=== PATIENT | male | born 1965 | race Caucasian/White ===

== ENCOUNTER 2017-10-08 13:19 | Emergency (ER) | payer OTHER ==
--- NOTE | 2017-10-08 13:31 | EDPHY ---
H & P Stated Complaint: bilat leg cramping x few weeks Time Seen by Provider: 10/08/17 13:30 - Personal History Current Tetanus/Diphtheria Vaccine: Unsure Current Tetanus Diphtheria and Acellular Pertussis (TDAP): Unsure - Medical/Surgical History Hx Asthma: No Hx Chronic Respiratory Disease: No Hx Diabetes: No Hx Cardiac Disease: No Hx Renal Disease: No Hx Cirrhosis: No Hx Alcoholism: No Hx HIV/AIDS: Yes Hx Splenectomy or Spleen Trauma: No Other PMH: NIDDM. HIV. hyperlipidemia - Social History Smoking Status: Never smoked Constitutional: Initial Vital Signs Temperature (C) 37.0 C 10/08/17 13:24 Heart Rate 85 10/08/17 13:24 Respiratory Rate 18 10/08/17 13:24 Blood Pressure 132/90 H 10/08/17 13:24 O2 Sat (%) 96 10/08/17 13:24 O2 Delivery Mode Room Air Allergies/Adverse Reactions: No Known Allergies Allergy (Unverified 10/08/17 13:21) Home Medications: Medication Instructions Recorded FENOFIBRATE 10/08/17 Glipizide 10/08/17 Jardiance 10/08/17 LORazepam [Ativan 1 mg (RX)] 1 mg PO QS PRN #14 tab 10/08/17 Lisinopril 10/08/17 Metformin HCl 10/08/17 Pioglitazone HCl 10/08/17 Pravastatin Sodium 10/08/17 Triumeq Tablet 10/08/17 Medical Decision Making - Diagnostics Imaging Results: Imaging Impressions Extremity Venous Study 10/08/17 13:39 Impression: There is no sonographic evidence of deep or superficial venous thrombosis in either lower extremity. Findings were discussed with Rogelio Byers MD at 14:18, on 10/08/2017. Imaging: Discussed imaging studies w/ call center coordinator Radiologist, I viewed and interpreted images myself ED Course/Re-evaluation: CHIEF COMPLAINT: Bilateral leg cramps HISTORY OF PRESENT ILLNESS: The patient is a 52 y/o male with a history of HIV and NIDDM who is on a statin , complaining intermittent episodes of bilateral lower extremity cramping for several weeks. Around 10 days ago he had a bad episode of lower extremity cramping. Since this bad episode he has had a throbbing sensation in his legs as well as hip and low back pain. This pain has not improved with increased water consumption or taking Glycinate and ibuprofen. Last night he began to have bruising of his right calf as well as a grisly sound in the back of his right knee. Today he began to feel a heartbeat in his right leg that began in his calf and has since radiated up his leg. He has recently been working out more, but believes these symptoms are not due to that. Denies seeing a etl architect or neurologist in the past for these symptoms. Denies chest pain , shortness of breath, abdominal pain, numbness, paresthesias, fever. REVIEW OF SYSTEMS: A 10 point review of systems was performed and is negative with the exception of the elements mentioned in the history of present illness. PHYSICAL EXAM: HR, BP, O2 Sat, RR. Temp noted General Appearance: Alert, well hydrated, appropriate, and non-toxic appearing. Head: Atraumatic without scalp tenderness or obvious injury Eyes: Pupils equal, round, reactive to light and accommodation, EOMI, no trauma , no injection. Ears: Clear bilaterally, no perforation, normal landmarks Nose: Atraumatic, no rhinorrhea, clear. Throat: There is no erythema or exudates, no lesions, normal tonsils, mucus membranes moist. Neck: Supple, nontender, no lymphadenopathy. Respiratory: No retractions, no distress, no wheezes, and no accessory muscle use. Lungs are clear to auscultation bilaterally. Cardiovascular: Regular rate and rhythm, no murmurs, rubs, or gallops. Bilateral carotid, radial, dorsalis pedis, and posterior tibial pulses intact. Good capillary refill all extremities. Gastrointestinal: Abdomen is soft, nontender, non-distended, no masses, no rebound, no guarding, no peritoneal signs. Musculoskeletal: Bruising on right medial calf. Normal active ROM of all extremities, atraumatic. Neurological: Alert, appropriate, and interactive. Non-focal neuro. Skin: No rashes, good turgor, no nodules on palpation. Past medical history: NIDDM, HIV, hyperlipidemia Past surgical history: Denies Family history: Denies Social history: Lives in [place], single, employed DIAGNOSTICS/PROCEDURES/CRITICAL CARE TIME: Lower Extremity US: Negative DIFFERENTIAL DIAGNOSIS: The differential diagnosis for the patient's leg cramping included but was not limited to Parkinson's Disease, myopathy, neuropathy, electrolyte abnormality, neurogenic cause, medication side effect, lumbar stenosis, trauma, and DVT. MEDICAL DECISION MAKING: The patient is a 52 y/o male with a history of HIV and NIDDM who is on a statin , is presenting with intermittent episodes of bilateral lower extremity cramping. On exam he has bruising on the right medial calf, but normal dorsalis pedis and posterior tibial pulses. Labs and bilateral lower extremity US ordered. 1420: I spoke with Dr. Bush, radiologist, regarding patient's negative lower extremity US. This patient has normal laboratory findings including normal electrolytes, kidney function, LFT's, and total CPK. His blood counts are also unremarkable besides borderline anemia. 1421: Reassessed patient and discussed normal imaging and laboratory findings. I have discussed taking a B complex vitamin, vitamin E, Benadryl, and a low dose iron for his symptoms. I have prescribed the patient Ativan for at night and discussed outpatient follow up with a neurologist and with [facility]. Return precautions provided; patient is comfortable with this plan. - Data Points Laboratory Results: Laboratory Results 10/08/17 13:50 10/08/17 13:50 10/08/17 10/08/17 13:50 13:50 WBC 5.01 10^3/uL 10^3/uL (3.80-9.50) RBC 3.81 10^6/uL L 10^6/uL (4.40-6.38) Hgb 12.7 g/dL L g/dL (13.7-17.5) Hct 36.9 % L % (40.0-51.0) MCV 96.9 fL fL (81.5-99.8) MCH 33.3 pg pg (27.9-34.1) MCHC 34.4 g/dL g/dL (32.4-36.7) RDW 12.0 % % (11.5-15.2) Plt Count 352 10^3/uL 10^3/uL (150-400) MPV 8.7 fL fL (8.7-11.7) Neut % (Auto) 53.3 % % (39.3-74.2) Lymph % (Auto) 29.3 % % (15.0-45.0) [place] % (Auto) 13.2 % H % (4.5-13.0) Eos % (Auto) 3.0 % % (0.6-7.6) Baso % (Auto) 1.0 % % (0.3-1.7) Nucleat RBC Rel Count 0.0 % % (0.0-0.2) Absolute Neuts (auto) 2.67 10^3/uL 10^3/uL (1.70-6.50) Absolute Lymphs (auto) 1.47 10^3/uL 10^3/uL (1.00-3.00) Absolute Monos (auto) 0.66 10^3/uL 10^3/uL (0.30-0.80) Absolute Eos (auto) 0.15 10^3/uL 10^3/uL (0.03-0.40) Absolute Basos (auto) 0.05 10^3/uL 10^3/uL (0.02-0.10) Absolute Nucleated RBC 0.00 10^3/uL 10^3/uL (0-0.01) Immature Gran % 0.2 % % (0.0-1.1) Immature Gran # 0.01 10^3/uL 10^3/uL (0.00-0.10) Sodium 142 mEq/L mEq/L (135-145) Potassium 4.6 mEq/L mEq/L (3.3-5.0) Chloride 108 mEq/L mEq/L (97-110) Carbon Dioxide 19 mEq/l L mEq/l (22-31) Anion Gap 15 mEq/L mEq/L (8-16) BUN 19 mg/dL mg/dL (7-23) Creatinine 1.3 mg/dL mg/dL (0.7-1.3) Estimated GFR 58 Glucose 83 mg/dL mg/dL (70-100) Calcium 9.6 mg/dL mg/dL (8.5-10.4) Total Bilirubin 0.4 mg/dL mg/dL (0.1-1.4) Conjugated Bilirubin 0.4 mg/dL mg/dL (0.0-0.5) Unconjugated Bilirubin 0.0 mg/dL mg/dL (0.0-1.1) AST 33 IU/L IU/L (17-59) ALT 51 IU/L IU/L (21-72) Alkaline Phosphatase 39 IU/L IU/L (38-126) Creatine Kinase 129 IU/L IU/L (0-224) Total Protein 7.0 g/dL g/dL (6.3-8.2) Albumin 4.3 g/dL g/dL (3.5-5.0) Departure - Departure Disposition: Home, Routine, Self-Care Clinical Impression: Bilateral leg cramps Condition: Good Instructions: Lorazepam (By mouth), Leg Cramps (ED), Muscle Cramp (ED) Additional Instructions: 1. Take Ativan at night as prescribed. 2. Start taking B complex vitamins and Vitamin E. 3. Take a low dose iron supplement. 4. Take 25-50mg of Benadryl before bed. 5. Follow up with [facility] and a neurologist in the next week. 6. Return to the Emergency Department for fever, chest pain, shortness of breath , increasing pain or other worsening of condition. Referrals: [facility]celyn Cox [Outside] - As per Instructions Grace Barbosa MD [Primary Care Provider] - As per Instructions Alfonso Henning DO [Doctor of Osteopathy] - As per Instructions Prescriptions: LORazepam [Ativan 1 mg (RX)] 1 mg PO QS PRN #14 tab PRN Reason: Spasms Report Scribed for: Rogelio Byers Report Scribed by: Sadia Tovar Date of Report: 10/08/17 Time of Report: 13:31
[2017-10-08 13:57] LABS: PLATELET COUNT 352 10^3/uL (150-400)
[2017-10-08 14:09] LABS: CREATINE KINASE 129 IU/L (0-224)
[2017-10-08 14:37] VITALS: BP 148/90
== END 2017-10-08 14:37 | disposition home or self-care (01) ==
DX: R25.2 Cramp and spasm (principal); Z21 Asymptomatic human immunodeficiency virus [HIV] infection status; E11.9 Type 2 diabetes mellitus without complications; Z79.84 Long term (current) use of oral hypoglycemic drugs

== ENCOUNTER → 2017-10-09 | Outpatient (CLI) | payer OTHER ==
[~2017-10-09] MED LIST: GADOBUTROL 10 ML VIAL IVP ONE
== END ==
LOC: FIMAGING 17:17
PROVIDERS: ATTEND Internal Medicine
DX: M99.73 Connective tissue and disc stenosis of intervertebral foramina of lumbar region (principal); M48.061 Spinal stenosis, lumbar region without neurogenic claudication; M48.07 Spinal stenosis, lumbosacral region; M12.88 Other specific arthropathies, not elsewhere classified, other specified site; M51.26 Other intervertebral disc displacement, lumbar region
CPT/HCPCS: A9585

== ENCOUNTER 2017-10-10 03:55 | Emergency (ER) | payer OTHER ==
[2017-10-10 04:09] VITALS: BP 131/92
--- NOTE | 2017-10-10 04:38 | EDPHY ---
H & P Stated Complaint: severe cramping of lower extremities worsening Time Seen by Provider: 10/10/17 04:14 HPI/ROS: Chief Complaint: Leg cramping HPI: 52-year-old HIV-positive male who has a long history of intermittent leg cramping for years has been having worsening cramping for the last several weeks. He is actually seen in the emergency department 2 days ago for severe leg cramping. At that time he had an ultrasound which was unremarkable and blood work which was also unremarkable. He was referred to [facility] for further evaluation and he had a lumbar spine MRI yesterday afternoon. This morning he went to bed and woke up at 1:30 a.m. With severe bilateral leg cramping. He took 1 mg of Ativan as prescribed on his prior ER visit. Patient continued to have severe cramping so he took a 2nd mg of Ativan and came here for further evaluation. Patient is now presenting feeling much better. He does state that over the last 2 weeks he has been having decreased mobility issues. No difficulty urinating or having a bowel movement. He has taken high doses of electrolytes in the past was advised against this was potassium is too high. His viral load is undetectable. His brother has had similar symptoms in the contents around the family but the symptoms have been significantly worse recently. He is presenting this morning wondering if he should take further electrolytes or any other treatments. He does have an appointment with the [facility] doctors tomorrow. ROS: 10 point Review of Systems is negative except as noted in the HPI. Social History: No smoking, no alcohol, no recreational drug use Family History: non-contributory Physical Exam: Gen: Awake, Alert, No Distress HEENT: Nose: no rhinorrhea Eyes: PERRLA, EOMI Mouth: Moist mucosa Neck: Supple, no JVD Chest: nontender, lungs clear to auscultation Heart: S1, S2 normal, no murmur Abd: Soft, non-tender, no guarding Back: no CVA tenderness, no midline tenderness Ext: no edema, non-tender Skin: no rash Neuro: CN II-XII intact, Sensation grossly intact, Strength 5/5 in bilateral upper and lower extremities, he does have diminished bilateral deep tendon reflexes in the patellar tendons - Personal History Current Tetanus/Diphtheria Vaccine: No Current Tetanus Diphtheria and Acellular Pertussis (TDAP): No - Medical/Surgical History Hx Asthma: No Hx Chronic Respiratory Disease: No Hx Diabetes: No Hx Cardiac Disease: No Hx Renal Disease: No Hx Cirrhosis: No Hx Alcoholism: No Hx HIV/AIDS: Yes Hx Splenectomy or Spleen Trauma: No Other PMH: NIDDM. HIV. hyperlipidemia. severe cramps to legs - Social History Smoking Status: Never smoked Constitutional: Initial Vital Signs Temperature (C) 36.7 C 10/10/17 03:59 Heart Rate 95 10/10/17 03:59 Respiratory Rate 18 10/10/17 03:59 Blood Pressure 131/92 H 10/10/17 03:59 O2 Sat (%) 96 10/10/17 03:59 O2 Delivery Mode Room Air Allergies/Adverse Reactions: No Known Allergies Allergy (Unverified 10/08/17 13:21) Home Medications: Medication Instructions Recorded FENOFIBRATE 10/08/17 Glipizide 10/08/17 Jardiance 10/08/17 LORazepam [Ativan 1 mg (RX)] 1 mg PO QS PRN #14 tab 10/08/17 Lisinopril 10/08/17 Metformin HCl 10/08/17 Pioglitazone HCl 10/08/17 Pravastatin Sodium 10/08/17 Triumeq Tablet 10/08/17 Medical Decision Making - Diagnostics Imaging Results: Lumbar spine MRI done yesterday shows L5-S1 moderate to severe left neural foraminal stenosis, moderate right neural foraminal stenosis, and mild central canal stenosis secondary to severe degenerative disc disease with circumferential disc osteophyte some bilateral facet L3-L4 right far lateral disc herniation with mild degenerative disc disease resulting in mild central canal stenosis and mild right neural foraminal stenosis. No diskitis osteomyelitis or enhancing lesions. ED Course/Re-evaluation: I have reviewed the patient's MRI from yesterday afternoon. He does have significant degenerative disc disease and foraminal narrowing which is likely exacerbating his symptoms. He is neurologically intact. His pain is controlled after the Ativan he took this morning. I recommend he continue with his medications. He can also add tonic water to his diet 4 quinine. Ultimately however I believe he needs to follow up with the spine doctors. He has an appointment with them tomorrow. His symptoms are controlled now. No evidence of an acute neurosurgical emergency at this time. Departure - Departure Disposition: Home, Routine, Self-Care Clinical Impression: Lumbar radiculopathy Condition: Good Instructions: Lumbar Radiculopathy (ED) Additional Instructions: Follow up with her spine doctor tomorrow as scheduled. Return to the emergency department for increasing back pain, numbness, weakness , fevers, chills, difficulty urinating or having a bowel movement, or any other concerns. Referrals: [facility] [Provider Group] - As per Instructions
== END 2017-10-10 04:56 | disposition home or self-care (01) ==
DX: M54.16 Radiculopathy, lumbar region (principal); E11.9 Type 2 diabetes mellitus without complications; B20 Human immunodeficiency virus [HIV] disease; Z79.84 Long term (current) use of oral hypoglycemic drugs

== ENCOUNTER 2017-10-21 16:01 | Observation (INO) | payer OTHER ==
--- NOTE | 2017-10-21 16:20 | CPEKG ---
Heart Rate: 98 RR Interval: 612 P-R Interval: 128 QRSD Interval: 72 QT Interval: 324 QTC Interval: 414 P [place]: 63 QRS [place]: 50 T Wave [place]: 38 EKG Severity - NORMAL ECG - EKG Impression: SINUS RHYTHM Electronically Signed By: Alfonso Childers 21-Oct-2017 16:42:32
[2017-10-21] MEDS ORDERED: ASPIRIN 81 MG CHEWABLE TAB PO ONE (16:35)
[2017-10-21] MEDS ORDERED: NS 1,000 ML IV ONE (16:35)
--- NOTE | 2017-10-21 16:39 | EDPHY ---
H & P Stated Complaint: felt presyncopal today, muscle cramps, Sob, tremors, taking alot of magnesi Time Seen by Provider: 10/21/17 16:19 HPI/ROS: CHIEF COMPLAINT: Pre syncope, diaphoretic and lightheaded HISTORY OF PRESENT ILLNESS: Patient is a 52-year-old man with a history of HIV with the currently undetectable viral load who has been to the ER 3 times in the last week. The 1st 2 times were for muscle cramping in his lower legs. He was hydrated and had normal electrolytes. His symptoms improved significantly with baclofen. On the 2nd visit he had an MRI of his lumbar spine that showed moderate to severe foraminal stenosis. He has follow-up on Monday for EMG. He states however that today he felt suddenly sweaty and lightheaded and was stumbling around bumping into crabtree. He denies chest pain or shortness of breath at the time. He is now here and appears anxious and rocking. He describes it as a tremor. Her resolves when he is distracted. REVIEW OF SYSTEMS: Constitutional: denies: chills, fever, recent illness, recent injury EENTM: denies: blurred vision, double vision, nose congestion Respiratory: denies: cough, shortness of breath Cardiac: See HPI Gastrointestinal/Abdominal: denies: abdominal pain, diarrhea, nausea, vomiting, blood streaked stools Genitourinary: denies: dysuria, frequency, hematuria, pain Musculoskeletal: See HPI Skin: denies: lesions, rash, jaundice, bruising Neurological: denies: headache, numbness, paresthesia, tingling, dizziness, weakness Hematologic/Lymphatic: denies: blood clots, easy bleeding, easy bruising Immunologic/allergic: denies: HIV/AIDS, transplant EXAM: GENERAL: Well-appearing, well-nourished and in no acute distress. HEAD: Atraumatic, normocephalic. EYES: Pupils equal round and reactive to light, extraocular movements intact, sclera anicteric, conjunctiva are normal. ENT: TMs normal, nares patent, oropharynx clear without exudates. Moist mucous membranes. NECK: Normal range of motion, supple without lymphadenopathy or JVD. LUNGS: Breath sounds clear to auscultation bilaterally and equal. No wheezes rales or rhonchi. HEART: Regular rate and rhythm without murmurs, rubs or gallops. ABDOMEN: Soft, nontender, normoactive bowel sounds. No guarding, no rebound. No masses appreciated. BACK: No CVA tenderness, no spinal tenderness, step-offs or deformities EXTREMITIES: Normal range of motion, no pitting or edema. No clubbing or cyanosis. NEUROLOGICAL: NIH stroke score 0, Cranial nerves II through XII grossly intact. Normal speech, normal gait. 5/5 strength, normal movement in all extremities, normal sensation PSYCH: Patient has a rocking motion with his torso. It resolves when distracted. Normal movement, currently go lightheadedness or dizziness. SKIN: Warm, dry, normal turgor, no visible rashes or lesions. Source: Patient, Family Exam Limitations: No limitations - Personal History Current Tetanus/Diphtheria Vaccine: No Current Tetanus Diphtheria and Acellular Pertussis (TDAP): No - Medical/Surgical History Hx Asthma: No Hx Chronic Respiratory Disease: No Hx Diabetes: Yes Hx Cardiac Disease: No Hx Renal Disease: No Hx Cirrhosis: No Hx Alcoholism: No Hx HIV/AIDS: Yes Hx Splenectomy or Spleen Trauma: No Other PMH: NIDDM. HIV. hyperlipidemia. leg cramps - Family History Significant Family History: No pertinent family hx - Social History Smoking Status: Never smoked Alcohol Use: Sober Drug Use: None Constitutional: Initial Vital Signs Temperature (C) 36.7 C 10/21/17 16:07 Heart Rate 111 H 10/21/17 16:07 Respiratory Rate 22 H 10/21/17 16:07 Blood Pressure 118/87 H 10/21/17 16:07 O2 Sat (%) 98 10/21/17 16:07 Allergies/Adverse Reactions: No Known Allergies Allergy (Unverified 10/08/17 13:21) Home Medications: Medication Instructions Recorded Abacavir/Dolutegravir/Lamivudi 1 each PO DAILY 10/21/17 [Triumeq Tablet] Aspirin EC [Aspirin EC 81 mg (*)] 81 mg PO DAILY 10/21/17 Baclofen [Baclofen 10 mg (*)] 10 mg PO TID PRN 10/21/17 Empagliflozin [Jardiance] 25 mg PO DAILY 10/21/17 FENOFIBRATE 160 mg PO DAILY 10/21/17 Herbals/Supplements -Info Only 1 ea PO DAILY 10/21/17 LORazepam [Ativan (*)] 1 mg PO HS PRN 10/21/17 Lisinopril [Zestril 20 mg (*)] 20 mg PO DAILY 10/21/17 Metformin HCl [Metformin 1000 mg] 1,000 mg PO BIDMEAL 10/21/17 Pioglitazone HCl [Actos] 30 mg PO DAILY 10/21/17 Pravastatin Sodium [Pravachol] 10 mg PO DAILY 10/21/17 Medical Decision Making - Diagnostics EKG Interpretation: An EKG obtained and was read and documented in trace view. Please see trace view for full reading and report. Sinus rhythm, no acute ischemic changes Imaging Results: Imaging Impressions Chest X-Ray 10/21/17 16:35 Impression: No evidence of acute cardiopulmonary abnormality. Imaging: Discussed imaging studies w/ call center assistant Radiologist ED Course/Re-evaluation: 5:50 p.m. I discussed the case with Dr. Cantrell who will admit to the medical service. Patient has rocking symptoms that do seem to resolve until I enter the room. He states that he thinks I make him feel nervous. He did have an episode of spasming here and it improved after about 30 sec. We did give him Ativan. We will admit him for further observation and workup. Differential Diagnosis: Partial list of the Differential diagnosis considered include but were not limited to; anxiety, electrolyte abnormality, radiculopathy and although unlikely based on the history and physical exam, I also considered infection, seizure, acute coronary disease. - Data Points Laboratory Results: Laboratory Results 10/21/17 16:41 10/21/17 16:41 10/21/17 10/21/17 10/21/17 16:49 16:41 16:41 WBC RBC Hgb Hct MCV MCH MCHC RDW Plt Count MPV Neut % (Auto) Lymph % (Auto) [place] % (Auto) Eos % (Auto) Baso % (Auto) Nucleat RBC Rel Count Absolute Neuts (auto) Absolute Lymphs (auto) Absolute Monos (auto) Absolute Eos (auto) Absolute Basos (auto) Absolute Nucleated RBC Immature Gran % Immature Gran # PT INR APTT Sodium Potassium Chloride Carbon Dioxide Anion Gap BUN Creatinine Estimated GFR Glucose Calcium Phosphorus 4.3 mg/dL mg/dL (2.5-4.5) Magnesium 2.1 mg/dL mg/dL (1.6-2.3) POC Troponin I 0.00 ng/mL ng/mL (0.00-0.08) Troponin I < 0.012 ng/mL ng/mL (0.000-0.034) TSH 0.712 uIU/mL uIU/mL (0.465-4.680) 10/21/17 10/21/17 10/21/17 16:41 16:41 16:41 WBC 8.29 10^3/uL 10^3/uL (3.80-9.50) RBC 4.21 10^6/uL L 10^6/uL (4.40-6.38) Hgb 13.9 g/dL g/dL (13.7-17.5) Hct 40.2 % % (40.0-51.0) MCV 95.5 fL fL (81.5-99.8) MCH 33.0 pg pg (27.9-34.1) MCHC 34.6 g/dL g/dL (32.4-36.7) RDW 11.9 % % (11.5-15.2) Plt Count 375 10^3/uL 10^3/uL (150-400) MPV 9.3 fL fL (8.7-11.7) Neut % (Auto) 74.9 % H % (39.3-74.2) Lymph % (Auto) 13.4 % L % (15.0-45.0) [place] % (Auto) 9.5 % % (4.5-13.0) Eos % (Auto) 1.2 % % (0.6-7.6) Baso % (Auto) 0.8 % % (0.3-1.7) Nucleat RBC Rel Count 0.0 % % (0.0-0.2) Absolute Neuts (auto) 6.20 10^3/uL 10^3/uL (1.70-6.50) Absolute Lymphs (auto) 1.11 10^3/uL 10^3/uL (1.00-3.00) Absolute Monos (auto) 0.79 10^3/uL 10^3/uL (0.30-0.80) Absolute Eos (auto) 0.10 10^3/uL 10^3/uL (0.03-0.40) Absolute Basos (auto) 0.07 10^3/uL 10^3/uL (0.02-0.10) Absolute Nucleated RBC 0.00 10^3/uL 10^3/uL (0-0.01) Immature Gran % 0.2 % % (0.0-1.1) Immature Gran # 0.02 10^3/uL 10^3/uL (0.00-0.10) PT 13.4 SEC SEC (12.0-15.0) INR 1.00 (0.83-1.16) APTT 22.8 SEC L SEC (23.0-38.0) Sodium 135 mEq/L mEq/L (135-145) Potassium 5.0 mEq/L mEq/L (3.3-5.0) Chloride 104 mEq/L mEq/L (97-110) Carbon Dioxide 16 mEq/l L mEq/l (22-31) Anion Gap 15 mEq/L mEq/L (8-16) BUN 40 mg/dL H mg/dL (7-23) Creatinine 1.4 mg/dL H mg/dL (0.7-1.3) Estimated GFR 53 Glucose 199 mg/dL H mg/dL (70-100) Calcium 10.2 mg/dL mg/dL (8.5-10.4) Phosphorus Magnesium POC Troponin I Troponin I TSH Medications Given: Discontinued Medications Aspirin (Aspirin) 324 mg PO EDNOW ONE Stop: 10/21/17 16:36 Last Admin: 10/21/17 16:46 Dose: 324 mg Sodium Chloride (Ns) 1,000 mls @ 0 mls/hr IV EDNOW ONE; Wide Open PRN Reason: Protocol Stop: 10/21/17 16:36 Last Admin: 10/21/17 16:48 Dose: 1,000 mls Lorazepam (Ativan Injection) 1 mg IVP EDNOW ONE Stop: 10/21/17 17:38 Last Admin: 10/21/17 17:44 Dose: 1 mg Point of Care Test Results: Chemistry 10/21/17 16:49 POC Troponin I 0.00 ng/mL ng/mL (0.00-0.08) Departure - Departure Disposition: [facility] Inpatient Acute Clinical Impression: Pre-syncope Condition: Fair
[2017-10-21 17:10] LABS: PLATELET COUNT 375 10^3/uL (150-400)
[2017-10-21 17:36] LABS: PROTIME(PATIENT) 13.4 SEC (12.0-15.0)
[2017-10-21] MEDS ORDERED: LORazepam 2 MG/ML INJ IVP ONE (17:37)
[2017-10-21] MEDS ORDERED: ACETAMINOPHEN 325 MG TAB PO PRN (18:26)
[2017-10-21] MEDS ORDERED: ONDANSETRON 4 MG/2 ML VIAL IVP PRN (18:26)
[2017-10-21] MEDS ORDERED: ONDANSETRON DISINTEGRATING 4 MG TAB PO PRN (18:26)
[2017-10-21] MEDS ORDERED: NS 1,000 ML IV SCH (18:30)
[2017-10-21] MEDS ORDERED: D50W 25 GM/50 ML SYR IVP PRN (18:43)
--- NOTE | 2017-10-21 19:16 | GHP ---
[f rep st] HISTORY AND PHYSICAL DATE OF ADMISSION: 10/21/2017 CHIEF COMPLAINT: Lightheaded. HISTORY OF PRESENT ILLNESS: This is a 52-year-old man with HIV with an undetectable level. Presents with lightheadedness. This is his 3rd visit to the ED in the past 2 weeks. His previous 2 visits w ere for severe leg cramps. He tells me that this has been an issue all his life, worse recently. Al so notably, at the end of August, he started a new health kick, where he is eating much less calories than before. He has been taken magnesium for his leg cramps, which he feels has been helping. He woodall s had more diarrhea recently; he has been taking Imodium. Today, he had 6 episodes of large watery stool. He attributes this to his high dose of magnesium. Kayli lyle had an MRI of his L-spine, which showed some degenerative disease. He has a followup with Neurolog y in 2 days. Today he felt lightheaded, presyncopal, and diaphoretic. He was seen by his roommate, who felt that he was not making sense. When I am seeing him, he has multiple episodes of leg spasms. I do not pam reciate any overtly tight muscles when I am examining him, either. He was also recently in [place], went to the ED there about a week ago for difficulty speaking. At that time, his glucose was found t o be 60 and he was discharged. PAST MEDICAL/SURGICAL HISTORY: 1. Hypertension. 2. Well-controlled diabetes with a last A1c about 6.3%. 3. HIV with an undetectable viral level. MEDICATIONS: Please see medication reconciliation. ALLERGIES: No known drug allergies. FAMILY HISTORY: Reviewed and noncontributory. SOCIAL HISTORY: He is accompanied by his roommate. He quit drinking a couple months ago. REVIEW OF SYSTEMS: A 10-point review of systems is conducted and is negative except per HPI. PHYSICAL EXAM: VITAL SIGNS: Blood pressure 118/87. Heart rate 111; when I am seeing him it is in t he 70s. Respiration rate 20. Saturating at 98% on room air. Temperature is 36.7. GENERAL: The brannon waldron is a pleasant man, who is intermittently grabbing his leg due to spasms. HEENT: Shows him to be normocephalic, atraumatic. CARDIOVASCULAR: Regular rate and rhythm. There are no murmurs, rubs, or gallops. PULMONARY: Lungs clear to auscultation bilaterally. ABDOMEN: Soft, nontender, nondis tended. SKIN: Shows no rash. : No Catherine. NEUROLOGIC: Exam shows him to be alert and oriented x3. He is moving all extremities. PSYCHIATRIC: Normal mood and affect. LABORATORY DATA: Creatinine is 1.4. Bicarb is 16. Troponins negative. White count is 8.2. DATA: 1. I discussed this with Dr. Childers. Will admit to Med/Surg. 2. I personally viewed and interpreted his chest x-ray. This shows nothing acute. 3. I personally viewed and interpreted his EKG. This shows sinus rhythm. IMPRESSION AND PLAN: This is a 52-year-old man, who presents with multiple complaints including pres yncope and muscle spasms. 1. Presyncope/lightheadedness/diaphoresis: At this point, I think this is most likely dehydration. He has a non-anion gap acidosis as well as a slightly elevated creatinine above his baseline. I thi nk it probably represents dehydration in the setting of diarrhea. I will rehydrate him with normal s mckenzie overnight, and recheck his labs tomorrow. He has also had a mild acidosis. This have been a r enal tubular acidosis in the past compounded by diarrhea. I do not suspect a cardiac etiology with a normal EKG, normal troponin, and I reviewed that he had a normal nuclear stress test in July at [facility]. I think keeping him on telemetry overnight is reasonable to look for arrhythmias . 2. Diarrhea: This likely is due to his magnesium use. Given his description of watery diarrhea tomere sosa, I will check a GI pathogen panel. May continue treating this with Imodium if necessary. 3. Chronic kidney disease: His creatinine is essentially at his baseline. His BUN is more elevated than normal. We will rehydrate him and recheck in the morning. 4. Muscle spasms: I do wonder if he has magnesium wasting from previous alcohol use. His last magn esium was slightly low. Will recheck a magnesium and replete intravenously if necessary. He is blanca archuleta a neurologist who started him on Baclofen. 5. Degenerative disk disease: This was seen on his spinal MRI. He has no clear focal neurologic sy mptoms from this. 6. Anxiety: This may be driving a lot of his presentation. He may need to address this as an outpa tient. 7. HIV: This is well controlled. 8. Diabetes mellitus: This is well controlled. We will follow his glucoses. /[id number]/MODL
[2017-10-21] MEDS ORDERED: LORazepam 1 MG TAB PO PRN (20:16)
[2017-10-21] MEDS ORDERED: BACLOFEN 10 MG TAB PO PRN (20:16)
[2017-10-21] MEDS ORDERED: D50W 25 GM/50 ML VIAL IVP PRN (21:00)
[2017-10-22] MEDS ORDERED: INSULIN LISPRO 100 UNIT/ML SC SCH (08:00)
[2017-10-22] MEDS ORDERED: TRIUMEQ PO SCH (08:00)
[2017-10-22 08:58] VITALS: BP 116/87
[2017-10-22] MEDS ORDERED: PIOGLITAZONE HCL 30 MG PO SCH (09:00)
[2017-10-22] MEDS ORDERED: PRAVASTATIN SODIUM 10 MG TAB PO SCH (09:00)
[2017-10-22] MEDS ORDERED: Empagliflozin [Jardiance] 25 MG PO SCH (09:00)
[2017-10-22] MEDS ORDERED: ASPIRIN EC 81 MG TAB PO SCH (09:00)
--- NOTE | 2017-10-22 19:18 | GDS ---
[f rep st] DISCHARGE SUMMARY DISCHARGE DIAGNOSES: 1. Presyncope, resolved. 2. Diarrhea, improved. 3. Chronic kidney disease with slight azotemia, improved. 4. Muscle spasms. 5. Degenerative disk disease. 6. Anxiety. 7. Human immunodeficiency virus. 8. Diabetes mellitus. HISTORY: For details, please see the history and physical dated 10/21/2017. In brief, Mr. Raya is a 52-year-old male with a history of HIV and hypertension, [facility]. He was admitted to the hospital for further evaluation. HOSPITAL COURSE: The patient was admitted to the cardiac telemetry unit. He was noted to have sligh t elevation in his BUN and creatinine, as well as a non-anion gap metabolic acidosis. He received IV fluids overnight and BUN trended down. His creatinine normalized. His CO2 improved from 16 to 21. His blood sugars remained stable. His troponins were negative. He received a total of 3 L of chai l saline. We discussed that too much magnesium could be contributing to diarrhea, which puts him at risk for volume depletion. We discussed maintaining hydration in moderation and close followup with his primary care physician. DISPOSITION: Patient is discharged home in stable condition. FOLLOWUP: 1. Ju Davey NP. 2. Grace Barbosa MD, Infectious Disease for his HIV care. DISCHARGE MEDICATIONS: Please see [employer] completed outpatient medication list. The patient will c ontinue all outpatient medications as previously prescribed. /[id number]/MODL
== END 2017-10-22 12:19 | disposition home or self-care (01) ==
LOC: F2W 18:45
PROVIDERS: ADMIT Student in an Organized Health Care Education/Training Program; ATTEND Hospitalist
DX: R55 Syncope and collapse (principal); R19.7 Diarrhea, unspecified; E86.0 Dehydration; N18.9 Chronic kidney disease, unspecified; M62.838 Other muscle spasm; E87.2 Acidosis; M51.36 Other intervertebral disc degeneration, lumbar region; F41.9 Anxiety disorder, unspecified; E11.9 Type 2 diabetes mellitus without complications; Z79.84 Long term (current) use of oral hypoglycemic drugs; Z21 Asymptomatic human immunodeficiency virus [HIV] infection status
CPT/HCPCS: 71046; 93005; G0378; 84484-PO; 96374; J2060

== ENCOUNTER → 2017-10-24 | Outpatient (CLI) | payer OTHER ==
[~2017-10-24] MED LIST changes: -GADOBUTROL 10 ML VIAL IVP ONE; +IOPAMIDOL (ISOVUE-300) 100 ML BTL ONE
== END ==
LOC: CIMAGING 08:30
PROVIDERS: ATTEND Internal Medicine
DX: G25.3 Myoclonus (principal); M51.37 Other intervertebral disc degeneration, lumbosacral region; B20 Human immunodeficiency virus [HIV] disease; R63.4 Abnormal weight loss
CPT/HCPCS: 71260-PO; 74177-PO; Q9967